=== PATIENT | male | born 1975 | race Caucasian/White ===

== ENCOUNTER 2016-09-05 08:02 | Emergency (ER) | payer OTHER ==
[2016-09-05 08:24] VITALS: BP 133/95; PULSE 73; RESP 18; TEMP 98.6; O2SAT 97
[2016-09-05] MEDS ORDERED: IBUPROFEN 600 MG TAB PO ONE ×2 (08:33→08:35)
--- NOTE | 2016-09-05 08:42 | UCPHY ---
H & P Time Seen by Provider: 09/05/16 08:30 Patient Type: New HPI/ROS: This patient presents with a chief complaint of a finger laceration which occurred shortly before arrival when he cut it on a knife. Tetanus immunizations are current. He was concerned because he could not control the bleeding. He has no motor or sensory dysfunction. Smoking Status: Former smoker Physical Exam: This is a well-developed well-nourished male who is in no acute distress. He is alert lucid and appropriate. Speech and gait are normal. Examination of the finger reveals a superficial small flap laceration to the ulnar side of the distal phalanx of the 4th digit. Pressure has controlled the bleeding. Constitutional: Initial Vital Signs Temperature (C) 37 C 09/05/16 08:21 Heart Rate 73 09/05/16 08:21 Respiratory Rate 18 09/05/16 08:21 Blood Pressure 133/95 H 09/05/16 08:21 O2 Sat (%) 97 09/05/16 08:21 Allergies/Adverse Reactions: No Known Allergies Allergy (Verified 09/05/16 08:20) Home Medications: Medication Instructions Recorded NO HOME MEDICATIONS 08/05/11 Medical Decision Making ED Course/Re-evaluation: The wound was cleansed and dressed. Differential Diagnosis: This laceration is quite minor and does not require sutures. - Data Points Medications Given: Discontinued Medications Ibuprofen (Motrin) 600 mg PO EDNOW ONE Stop: 09/05/16 08:36 Last Admin: 09/05/16 08:37 Dose: 600 mg Departure - Departure Disposition: Home, Routine, Self-Care Clinical Impression: Finger laceration Qualifiers: Encounter type: initial encounter Qualifier Code: (S61.219A) Laceration without foreign body of unspecified finger without damage to nail, initial encounter Condition: Good Instructions: Laceration (ED), Laceration Without Closure (ED) Additional Instructions: Changes are dressing in 2 or 3 days unless you get the current 1 wet in which case you should change it right away. Return immediately for any suggestion of infection. If you notice spreading redness, swelling, increasing pain and tenderness or polina pus you should return immediately since these findings frequently indicate infection. It usually takes 3 days from the time of injury for an infection to begin. Adult Pain & Fever Control: We recommend Acetaminophen (Tylenol) and Ibuprofen (Motrin, Advil) for pain and fever control. When fever is high or pain severe, both drugs can be used at the same time, but at different intervals. Please note the time differences. Your dose is: Acetaminophen [650]mg every 4 to 6 hours ibuprofen [600]mg every [6] hours with food OR naproxen Sodium (Aleve) [440]mg every 12 hours. Note: do not take Acetaminophen with Hydrocodone (Vicodin, Lortab) or Oxycodone (Percocet). These medications also contain Acetaminophen. No more than 3000 mg of Acetaminophen should be taken in 24 hours (for an adult) . The maximal dose of ibuprofen that it is safe in a 24-hour period is 2400 mg. You may take 400 mg every 4 hours, 600 mg every 6 hours or 800 mg every 8 hours safely. Referrals: JORGE HOLLOWAY [Primary Care Provider] - As per Instructions - PQRS PQRS Measurement: Not applicable
== END 2016-09-05 08:57 | disposition home or self-care (01) ==
LOC: CED 08:02
DX: S61.215A Laceration without foreign body of left ring finger without damage to nail, initial encounter (principal); W26.0XXA Contact with knife, initial encounter
CPT/HCPCS: 99202-PO; G0463-PO

== ENCOUNTER 2016-09-24 18:11 | Emergency (ER) | payer OTHER ==
--- NOTE | 2016-09-24 18:24 | UCPHY ---
H & P Patient Type: Established HPI/ROS: HPI CHIEF COMPLAINT: Left flank pain I think I have a kidney stone HISTORY OF PRESENT ILLNESS: This patient very pleasant a 41-year-old male, denies any significant medical history except for kidney stones, presents to urgent care with left flank pain. Patient tells me that developed left flank pain all the sudden 2 days ago. He has had left flank pain ongoing since and some sharp stabbing radiation pain into his left groin region. Denies testicular pain. States he had dark urine yesterday but no blood visible. Denies burning when he urinates. Denies fever, denies nausea vomiting. Past Medical History: Kidney stones Past Surgical History: lithotripsy Social History: denies use of drugs, endorses tobacco, denies alcohol Family History: Noncontributory ROS REVIEW OF SYSTEMS: A comprehensive 10 point review of systems is otherwise negative aside from elements mentioned in the history of present illness. Exam Constitutional triage nursing summary reviewed, vital signs reviewed, awake/ alert. Eyes normal conjunctivae and sclera, EOMI, PERRLA. HENT normal inspection, atraumatic, moist mucus membranes, no epistaxis, neck supple/ no meningismus, no raccoon eyes. Respiratory clear to auscultation bilaterally, normal breath sounds, no respiratory distress, no wheezing. Cardiovascular rate normal, regular rhythm, no murmur, no edema, distal pulses normal. Gastrointestinal no left lower quadrant abdominal pain soft, non-tender, no rebound, no guarding, normal bowel sounds, no distension, no pulsatile mass. Genitourinary mild tenderness palpation left CVA, otherwise unremarkable Musculoskeletal no midline vertebral tenderness, full range of motion, no calf swelling, no tenderness of extremities, no meningismus, good pulses, neurovascularly intact. Skin pink, warm, & dry, no rash, skin atraumatic. Neurologic awake, alert and oriented x 3, AAOx3, moves all 4 extremities equally, motor intact, sensory intact, CN II-XII intact, normal cerebellar, normal vision, normal speech. Psychiatric normal mood/affect. Heme/Lymph/Immune no lymphadenopathy. Differential diagnosis includes but is not limited to and in no particular order : Kidney stone, Bowel obstruction, appendicitis, gallbladder disease, diverticulitis, colitis, enteritis, perforated viscus, gastritis, GERD, esophagitis, urinary tract infection, pyelonephritis, Medical Decision Making: This patient had an IV established received IV fluid bolus, once we get his creatinine back receive 30 mg IV Toradol for pain control. He will have a CT scan abdomen pelvis without IV contrast for flank pain kidney stone evaluation. Re-evaluation: CT scan of the abdomen pelvis without IV contrast. The results of the study are very small 2 mm stone in the penile urethra otherwise unremarkable no hydronephrosis, no pyelonephritis. The study was read by Dr. Hardy. I viewed the images myself on the PACS system. 1945: This patient is resting comfortably no ongoing flank pain is not have any vomiting. His urinalysis been reviewed shows no blood. CT results show possible 2 mm ureteral stone. Will most likely pass next 12 hours. I will send him home with Devi and [place] for pain control. He understands to follow up with Urology. Source: Patient - Family History Significant Family History: No pertinent family hx - Social History Smoking Status: Former smoker Constitutional: Initial Vital Signs Temperature (C) 37.0 C 09/24/16 18:20 Heart Rate 96 09/24/16 18:20 Respiratory Rate 18 09/24/16 18:20 Blood Pressure 138/83 H 09/24/16 18:20 O2 Sat (%) 96 09/24/16 18:20 O2 Delivery Mode Room Air Allergies/Adverse Reactions: No Known Allergies Allergy (Verified 09/24/16 18:27) Home Medications: Medication Instructions Recorded NO HOME MEDICATIONS 08/05/11 Hydrocodone/APAP 5/325 [[place] 1 - 2 tab PO Q4H PRN #10 tab 09/24/16 5/325] Ondansetron HCl [Zofran] 4 mg PO Q4-6PRN PRN #10 tablet 09/24/16 Medical Decision Making - Data Points Laboratory Results: Laboratory Results 09/24/16 18:53 09/24/16 18:53 09/24/16 09/24/16 18:53 18:15 WBC 10.83 H 10^3/uL (3.80-9.50) RBC 4.72 10^6/uL (4.40-6.38) Hgb 14.2 g/dL (13.7-17.5) Hct 42.0 % (40.0-51.0) MCV 89.0 fL (81.5-99.8) MCH 30.1 pg (27.9-34.1) MCHC 33.8 g/dL (32.4-36.7) RDW 12.9 % (11.5-15.2) Plt Count 241 10^3/uL (150-400) MPV 9.7 fL (8.7-11.7) Neut % (Auto) 58.8 % (39.3-74.2) Lymph % (Auto) 28.9 % (15.0-45.0) [place] % (Auto) 11.4 % (4.5-13.0) Eos % (Auto) 0.0 L % (0.6-7.6) Baso % (Auto) 0.5 % (0.3-1.7) Nucleat RBC Rel Count 0.0 % (0.0-0.2) Absolute Neuts (auto) 6.38 10^3/uL (1.70-6.50) Absolute Lymphs (auto) 3.13 H 10^3/uL (1.00-3.00) Absolute Monos (auto) 1.23 H 10^3/uL (0.30-0.80) Absolute Eos (auto) 0.00 L 10^3/uL (0.03-0.40) Absolute Basos (auto) 0.05 10^3/uL (0.02-0.10) Absolute Nucleated RBC 0.00 10^3/uL (0-0.01) Immature Gran % 0.4 % (0.0-1.1) Immature Gran # 0.04 10^3/uL (0.00-0.10) Sodium 141 mEq/L (134-144) Potassium 4.5 mEq/L (3.5-5.2) Chloride 104 mEq/L (97-110) Carbon Dioxide 22 mEq/l (22-31) Anion Gap 15 mEq/L (8-16) BUN 21 mg/dL (7-23) Creatinine 0.9 mg/dL (0.7-1.3) Estimated GFR > 60 Glucose 92 mg/dL (70-100) Calcium 9.4 mg/dL (8.5-10.4) Total Bilirubin 0.4 mg/dL (0.1-1.4) Conjugated Bilirubin 0.3 mg/dL (0.0-0.5) Unconjugated Bilirubin 0.1 mg/dL (0.0-1.1) AST 23 IU/L (17-59) ALT 24 IU/L (21-72) Alkaline Phosphatase 73 IU/L (38-126) Total Protein 6.9 g/dL (6.3-8.2) Albumin 3.9 g/dL (3.5-5.0) Lipase 375.0 H IU/L (23-300) Urine Color YELLOW Urine Appearance CLEAR Urine pH 5.5 (5.0-7.5) Ur Specific [place] 1.025 (1.002-1.030) Urine Protein NEGATIVE (NEGATIVE) Urine Ketones NEGATIVE (NEGATIVE) Urine Blood NEGATIVE (NEGATIVE) Urine Nitrate NEGATIVE (NEGATIVE) Urine Bilirubin NEGATIVE (NEGATIVE) Urine Urobilinogen 0.2 EU (0.2-1.0) Ur Leukocyte Esterase NEGATIVE (NEGATIVE) Ur Culture Indicated? NOT INDICATED (NI) Urine Glucose NEGATIVE (NEGATIVE) Medications Given: Discontinued Medications Sodium Chloride (Ns) 1,000 mls @ 0 mls/hr IV ONCE ONE PRN Reason: Wide Open Stop: 09/24/16 18:28 Last Admin: 09/24/16 19:08 Dose: 1,000 mls Ketorolac Tromethamine (Toradol) 30 mg IVP EDNOW ONE Stop: 09/24/16 19:09 Last Admin: 09/24/16 19:10 Dose: 30 mg Ondansetron HCl (Zofran) 4 mg IVP EDNOW ONE Stop: 09/24/16 18:28 Last Admin: 09/24/16 19:08 Dose: 4 mg Departure - Departure Disposition: Home, Routine, Self-Care Clinical Impression: Kidney stone Condition: Good Instructions: Kidney Stones (ED), Flank Pain (ED), Renal Colic (ED) Additional Instructions: 1.Drink lots of fluids 2. You will most likely passed a very small stone next 12 hours. Referrals: JORGE HOLLOWAY [Primary Care Provider] - As per Instructions Will Henderson MD [Medical Doctor] - As per Instructions Prescriptions: Hydrocodone/APAP 5/325 [[place] 5/325] 1 - 2 tab PO Q4H PRN #10 tab PRN Reason: Pain, Moderate Ondansetron HCl [Zofran] 4 mg PO Q4-6PRN PRN #10 tablet PRN Reason: Nausea/Vomiting, Use 1st - PQRS PQRS Measurement: n/a
[2016-09-24 18:26] LABS: COLOR YELLOW; LEUKOCYTE ESTERASE,URINE NEGATIVE (NEGATIVE); NITRITE,URINE NEGATIVE (NEGATIVE); PH,URINE 5.5 (5.0-7.5)
[2016-09-24] MEDS ORDERED: ONDANSETRON 4 MG/2 ML VIAL IVP ONE (18:27)
[2016-09-24] MEDS ORDERED: NS 1,000 ML IV ONE (18:27)
[2016-09-24 18:57] VITALS: BP 138/83; PULSE 96; RESP 18; TEMP 98.6; O2SAT 96
[2016-09-24] MEDS ORDERED: KETOROLAC 30 MG/1 ML SDV ONE (19:03)
[2016-09-24 19:06] LABS: % IMMATURE GRANULYOCYTES 0.4 % (0.0-1.1); ABSOLUTE IMMATURE GRANULOCYTES 0.04 10^3/uL (0.00-0.10); ADD DIFF? NO; ADD MORPH? NO; ADD SCAN? NO; ATYPICAL LYMPHOCYTE FLAG 20 (0-99); FRAGMENT RBC FLAG 0 (0-99); HEMOGLOBIN 14.2 g/dL (13.7-17.5); LEFT SHIFT FLG 0 (0-99); LIPEMIA HEMOLYSIS FLAG 90 (0-99); MEAN CELL HEMOGLOBIN 30.1 pg (27.9-34.1); MEAN CELL HEMOGLOBIN CONCENTR. 33.8 g/dL (32.4-36.7); MEAN PLATELET VOLUME 9.7 fL (8.7-11.7); PLATELET CLUMPS FLAG 0 (0-99); PLATELET COUNT 241 10^3/uL (150-400); RED BLOOD CELL COUNT 4.72 10^6/uL (4.40-6.38); RED CELL DISTRIBUTION WIDTH 12.9 % (11.5-15.2)
[2016-09-24] MEDS ORDERED: KETOROLAC 30 MG/1 ML SDV IVP ONE (19:08)
--- NOTE | 2016-09-24 19:20 | CT ---
CT Scan of the Urinary Tract (Abdomen and Pelvis Without Contrast) at 1838 hours Clinical Indications: Left flank pain. History of stones. Comparisons: None. Technique: Multidetector helical CT imaging was performed from the kidneys to the urinary bladder wi thout contrast. Dose reduction techniques were utilized. Findings: Abdomen: The lung bases are clear. No evidence for pleural effusion. No focal liver lesions identifi ed. Gallbladder is unremarkable. Pancreas is normal in size and appearance. There is small renal calc chris in both kidneys in the region of the pyramid/calyx measuring 1 to 2 mm. No evidence for hydroneph rosis in either kidney or perinephric stranding. No evidence of dilatation of either ureter. Pelvis: No evidence for ureteral calculus. A couple of phleboliths are visualized. Benign prostate c alcifications are seen. Possible tiny 2 mm calcification is seen in the region of the proximal urethr a. No evidence for bladder calculi. No significant free fluid in the pelvis. Appendix is normal in si ze and appearance. No evidence for diverticulitis. Mild chronic anterior wedge compression deformitie s are seen of T10 and T11 vertebral bodies. There is mild disk height narrowing at L5-S1. Impression: 1. Nonobstructive bilateral nephrolithiasis. No evidence of ureteral calculus. Possible tiny calculus in the urethra. 2. Nonspecific probable benign prostate calcifications. 3. Mild chronic anterior wedge compression deformities of T10 and T11 vertebral bodies. Mild degenera tive disk disease in the lumbar spine. Results called and discussed with Jeremiah Herbert MD on 09/24/2016 at 1859 hours. Attention: This CT examination is specifically designed to evaluate patients who are clinically susp ected of having acute obstructive uropathy. This examination does not use radiographic contrast, and as such, provides only a limited evaluation of the abdomen, pelvis and retroperitoneum. If there i s further clinical suspicion for pathological conditions other than obstructive uropathy, a complete CT evaluation of the abdomen and pelvis utilizing intravenous, oral, and rectal contrast should be co nsidered.
[2016-09-24 19:22] LABS: ALANINE AMINOTRANSFERASE 24 IU/L (21-72); ALBUMIN 3.9 g/dL (3.5-5.0); ALKALINE PHOSPHATASE 73 IU/L (38-126); ANION GAP 15 mEq/L (8-16); ASPARTATE AMINOTRANSFERASE 23 IU/L (17-59); BILIRUBIN,TOTAL 0.4 mg/dL (0.1-1.4); BILIRUBIN-CONJUGATED 0.3 mg/dL (0.0-0.5); BILIRUBIN-UNCONJUGATED 0.1 mg/dL (0.0-1.1); CALCIUM 9.4 mg/dL (8.5-10.4); CARBON DIOXIDE 22 mEq/l (22-31); CHLORIDE 104 mEq/L (97-110); CREATININE 0.9 mg/dL (0.7-1.3); GLOMERULAR FILTRATION RATE > 60; GLUCOSE 92 mg/dL (70-100); POTASSIUM 4.5 mEq/L (3.5-5.2); SODIUM 141 mEq/L (134-144); TOTAL PROTEIN 6.9 g/dL (6.3-8.2)
== END 2016-09-24 19:59 | disposition home or self-care (01) ==
LOC: CED 18:11
DX: N20.0 Calculus of kidney (principal); N42.9 Disorder of prostate, unspecified; Z87.442 Personal history of urinary calculi; Z87.891 Personal history of nicotine dependence
CPT/HCPCS: 74176-PO; 80048-PO; 80076-PO; 81003-PO; 83690-PO; 85025-PO; 96361-PO; 96374-PO; 96375-PO; G0463-PO; J1885; J2405

== ENCOUNTER 2017-05-28 10:06 | Emergency (ER) | payer BC, OTHER ==
[2017-05-28 10:12] VITALS: TEMP 99.1
--- NOTE | 2017-05-28 10:38 | EDPHY ---
H & P Time Seen by Provider: 05/28/17 10:14 HPI/ROS: CHIEF COMPLAINT: History of bipolar, not sleeping HISTORY OF PRESENT ILLNESS: 41-year-old male presents to the emergency department by private vehicle feeling depressed. He has a history of bipolar. He was on lithium 20 years ago and he did not like this medication. He states that he is involved with a "lawsuit with [facility] ". He recently moved back to [place] for a job. He states that he smokes marijuana and does drink alcohol. Denies any other substance abuse. Denies suicidal or homicidal ideation. He states that he has not slept in several weeks. He states he is not functioning well. His chronic headaches. No visual changes. No nausea or vomiting. No fevers or chills. No chest pain or difficulty breathing. REVIEW OF SYSTEMS: Constitutional: No fever, no chills. Eyes: No double or blurry vision. ENT: No sore throat. Respiratory: No cough, no shortness of breath. Cardiac: No chest pain. Gastrointestinal: No abdominal pain, vomiting or diarrhea. Genitourinary: No dysuria. Musculoskeletal: No neck or back pain. Skin: No rashes. Neurological: Headache. Past Medical/Surgical History: Bipolar unmedicated for 20 years was on lithium. Social History: Smoking Status: Current some day smoker Physical Exam: General Appearance: Alert, no distress. Tearful. Eyes: Pupils equal and round. Extraocular motions are all intact. ENT: Mouth: Mucous membranes moist. Respiratory: No wheezing, rhonchi, or rales, lungs are clear to auscultation. Cardiovascular: Regular rate and rhythm. Gastrointestinal: Abdomen is soft and nontender, no masses, no rebound or guarding, bowel sounds normal. Neurological: Alert and oriented x 3, cranial nerves II through XII grossly intact Skin: Warm and dry, no rashes. Musculoskeletal: Nontender to palpate along the cervical, thoracic or lumbar spine. Neck is supple. Extremities: Full range of motion and no peripheral edema. Psychiatric: Patient is oriented X 3, there is no agitation. Constitutional: Initial Vital Signs Temperature (C) 37.3 C 05/28/17 10:10 Heart Rate 117 H 05/28/17 10:10 Respiratory Rate 18 05/28/17 10:10 Blood Pressure 144/94 H 05/28/17 10:10 O2 Sat (%) 95 10/14/17 10:10 O2 Delivery Mode Room Air Allergies/Adverse Reactions: No Known Allergies Allergy (Verified 09/24/16 18:27) Home Medications: Medication Instructions Recorded LORazepam [Ativan] 1 mg PO Q6-8PRN PRN #10 tab 05/28/17 Percocet 5/325 (*) 05/28/17 Xanax 05/28/17 Medical Decision Making ED Course/Re-evaluation: 41-year-old male presents with history of bipolar. He was placed on a detainer. He has been medically cleared. He was evaluated by mental health and will be discharged home with his . He has outpatient follow-up scheduled. He was given prescription for Ativan for his anxiety. The patient is not suicidal or homicidal. He is comfortable being discharged home. Differential Diagnosis: Depression including functional and major depression, situational depression, medication side effect, drugs and alcohol abuse. - Data Points Laboratory Results: Laboratory Results 05/28/17 10:45 05/28/17 10:55 05/28/17 05/28/17 05/28/17 10:55 10:45 10:40 WBC 9.22 10^3/uL 10^3/uL (3.80-9.50) RBC 4.60 10^6/uL 10^6/uL (4.40-6.38) Hgb 14.2 g/dL g/dL (13.7-17.5) Hct 40.6 % % (40.0-51.0) MCV 88.3 fL fL (81.5-99.8) MCH 30.9 pg pg (27.9-34.1) MCHC 35.0 g/dL g/dL (32.4-36.7) RDW 12.8 % % (11.5-15.2) Plt Count 242 10^3/uL 10^3/uL (150-400) MPV 9.4 fL fL (8.7-11.7) Neut % (Auto) 61.0 % % (39.3-74.2) Lymph % (Auto) 29.6 % % (15.0-45.0) [place] % (Auto) 8.7 % % (4.5-13.0) Eos % (Auto) 0.0 % L % (0.6-7.6) Baso % (Auto) 0.4 % % (0.3-1.7) Nucleat RBC Rel Count 0.0 % % (0.0-0.2) Absolute Neuts (auto) 5.62 10^3/uL 10^3/uL (1.70-6.50) Absolute Lymphs (auto) 2.73 10^3/uL 10^3/uL (1.00-3.00) Absolute Monos (auto) 0.80 10^3/uL 10^3/uL (0.30-0.80) Absolute Eos (auto) 0.00 10^3/uL L 10^3/uL (0.03-0.40) Absolute Basos (auto) 0.04 10^3/uL 10^3/uL (0.02-0.10) Absolute Nucleated RBC 0.00 10^3/uL 10^3/uL (0-0.01) Immature Gran % 0.3 % % (0.0-1.1) Immature Gran # 0.03 10^3/uL 10^3/uL (0.00-0.10) Sodium 139 mEq/L mEq/L (134-144) Potassium 4.2 mEq/L mEq/L (3.5-5.2) Chloride 105 mEq/L mEq/L (97-110) Carbon Dioxide 20 mEq/l L mEq/l (22-31) Anion Gap 14 mEq/L mEq/L (8-16) BUN 19 mg/dL mg/dL (7-23) Creatinine 1.0 mg/dL mg/dL (0.7-1.3) Estimated GFR > 60 Glucose 76 mg/dL mg/dL (70-100) Calcium 8.7 mg/dL mg/dL (8.5-10.4) TSH 0.389 uIU/mL L uIU/mL (0.465-4.680) Urine Opiates Screen NEGATIVE (NEGATIVE) Urine Barbiturates NEGATIVE (NEGATIVE) Ur Phencyclidine Scrn NEGATIVE (NEGATIVE) Ur Amphetamine Screen NEGATIVE (NEGATIVE) U Benzodiazepines Scrn NON-NEGATIVE H (NEGATIVE) Urine Cocaine Screen NEGATIVE (NEGATIVE) U Marijuana (THC) Screen NON-NEGATIVE H (NEGATIVE) Ethyl Alcohol 104 mg/dL H mg/dL (0-10) Medications Given: Discontinued Medications Acetaminophen (Tylenol) 1,000 mg PO EDNOW ONE Stop: 05/28/17 13:02 Last Admin: 05/28/17 13:04 Dose: 1,000 mg Lorazepam (Ativan) 1 mg PO EDNOW ONE Stop: 05/28/17 13:03 Last Admin: 05/28/17 13:04 Dose: 1 mg Nicotine Polacrilex (Nicorette) 2 mg B PRN PRN PRN Reason: Nicotine Withdrawal Stop: 11/24/17 11:34 Last Admin: 05/28/17 11:37 Dose: 2 mg Departure - Departure Disposition: Home, Routine, Self-Care Clinical Impression: Bipolar 1 disorder Condition: Good Instructions: Bipolar Disorder (ED) Additional Instructions: Follow-up per Mental Health's instructions. Ativan as needed for symptoms of anxiety. Return to the emergency department if you feel suicidal homicidal or if you have any other concerns. Referrals: JORGE HOLLOWAY [Primary Care Provider] - As per Instructions [facility] [Outside] - As per Instructions Prescriptions: LORazepam [Ativan] 1 mg PO Q6-8PRN PRN #10 tab PRN Reason: Anxiety
[2017-05-28 11:02] LABS: % IMMATURE GRANULYOCYTES 0.3 % (0.0-1.1); ABSOLUTE IMMATURE GRANULOCYTES 0.03 10^3/uL (0.00-0.10); ADD DIFF? NO; ADD MORPH? NO; ADD SCAN? NO; ATYPICAL LYMPHOCYTE FLAG 10 (0-99); FRAGMENT RBC FLAG 0 (0-99); HEMATOCRIT 40.6 % (40.0-51.0); HEMOGLOBIN 14.2 g/dL (13.7-17.5); LEFT SHIFT FLG 0 (0-99); LIPEMIA HEMOLYSIS FLAG 90 (0-99); MEAN CELL HEMOGLOBIN 30.9 pg (27.9-34.1); MEAN CELL VOLUME 88.3 fL (81.5-99.8); MEAN PLATELET VOLUME 9.4 fL (8.7-11.7); PLATELET CLUMPS FLAG 10 (0-99); PLATELET COUNT 242 10^3/uL (150-400); RED CELL DISTRIBUTION WIDTH 12.8 % (11.5-15.2)
[2017-05-28 11:21] LABS: ANION GAP 14 mEq/L (8-16); CALCIUM 8.7 mg/dL (8.5-10.4); CARBON DIOXIDE 20 mEq/l (22-31); CHLORIDE 105 mEq/L (97-110); ETHANOL SERUM 104 mg/dL (0-10); GLOMERULAR FILTRATION RATE > 60; GLUCOSE 76 mg/dL (70-100); POTASSIUM 4.2 mEq/L (3.5-5.2); SODIUM 139 mEq/L (134-144)
[2017-05-28] MEDS ORDERED: NICOTINE POLACRILEX 2 MG GUM B PRN (11:35)
[2017-05-28] MEDS ORDERED: ACETAMINOPHEN 500 MG TAB PO ONE (13:01)
[2017-05-28] MEDS ORDERED: LORazepam 1 MG TAB PO ONE (13:02)
[2017-05-28 14:55] VITALS: BP 138/70; PULSE 84; RESP 14; O2SAT 97
== END 2017-05-28 14:55 | disposition home or self-care (01) ==
DX: F31.9 Bipolar disorder, unspecified (principal); F17.200 Nicotine dependence, unspecified, uncomplicated
CPT/HCPCS: 80305; G0480

== ENCOUNTER 2017-06-15 20:37 | Emergency (ER) | payer SELFPAY ==
--- NOTE | 2017-06-15 20:31 | EDPHY ---
H & P Constitutional: Initial Vital Signs Temperature (C) 36.4 C 06/15/17 20:40 Heart Rate 83 06/15/17 20:40 Respiratory Rate 18 06/15/17 20:40 Blood Pressure 145/87 H 06/15/17 20:40 O2 Sat (%) 96 06/15/17 20:40 O2 Delivery Mode Room Air Allergies/Adverse Reactions: risperidone [From Risperdal] Allergy (Verified 06/15/17 21:23) Home Medications: Medication Instructions Recorded Percocet 5/325 (*) 05/28/17 Xanax 05/28/17 Depakote 06/15/17 Zyprexa 06/15/17 Medical Decision Making ED Course/Re-evaluation: CHIEF COMPLAINT: Psychiatric evaluation HISTORY OF PRESENT ILLNESS: The patient is a 41 y/o male with a history of bipolar disorder arriving voluntarily via EMS requesting a psychiatric evaluation. He tells me, "I feel like I'm capable of things other people aren't capable of. I feel like I can read a bunch of peoples' minds in the room." Per EMS, his is concerned he is having increasing frequency of his manic episodes. Tonight he apparently began cooking and then fell asleep leaving food on the stove to burn. The patient denies any suicidal ideation, homicidal ideation, or concerning ingestions. He is not taking any mediations for his mental health conditions. His mental health VIDEO PRODUCTION ASSISTANT called the ED and believes the patient requires inpatient psychiatric admission at this point. REVIEW OF SYSTEMS: A 10 point review of systems was performed and is negative with the exception of the elements mentioned in the history of present illness. PHYSICAL EXAM: General Appearance: Alert, well hydrated, appropriate, and non-toxic appearing. Head: Atraumatic without scalp tenderness or obvious injury Eyes: Pupils equal, round, reactive to light and accommodation, EOMI, no trauma , no injection. Nose: Atraumatic, no rhinorrhea, clear. Throat: Mucus membranes moist. Neck: Supple, nontender, no lymphadenopathy. Respiratory: No retractions, no distress, no wheezes, and no accessory muscle use. Lungs are clear to auscultation bilaterally. Cardiovascular: Regular rate and rhythm, no murmurs, rubs, or gallops. Good capillary refill all extremities. Gastrointestinal: Abdomen is soft, nontender, non-distended, no masses, no rebound, no guarding, no peritoneal signs. Musculoskeletal: Normal active ROM of all extremities, atraumatic. Neurological: Alert, appropriate, and interactive. The patient has non-focal cranial nerves, motor, sensory, and cerebellar exam. Skin: No rashes, good turgor, no nodules on palpation. Psychiatric: Tangential speech, calm Past medical history: Bipolar disorder Past surgical history: noncontributory Family history: noncontributory Social history: Heavy cigarette smoker. [facility] Prior medical records reviewed including ED visit 05/28/17 for similar symptoms. DIFFERENTIAL DIAGNOSIS: The differential diagnosis for the patient's depression included but was not limited to functional and major depression, situational depression, medication side effect, drugs, and alcohol abuse. MEDICAL DECISION MAKING: Patient is in no acute distress and is hemodynamically stable. We are awaiting psychiatric team's evaluation. Patient has known history of psychiatric disorders and is here for evaluation. (Brock Philippe) 0554: No acute events overnight. Has had mental health evaluation pending inpatient psychiatric hospitalization for terry. Possibly 3 [place] hospitalization today. If bed available. Patient signed over to Dr. Valdes at 7:00 a.m. shift change. (Jeremiah Herbert) 7:00 a.m.-I assumed care of this patient at shift change. 8:30 a.m.-this patient has been accepted to [facility] by Dr. Hardin. (Stephanie Valdes) - Data Points Laboratory Results: Laboratory Results 06/15/17 20:50 06/15/17 20:50 06/15/17 06/15/17 06/15/17 20:50 20:50 20:50 WBC 10.97 10^3/uL H 10^3/uL (3.80-9.50) RBC 4.76 10^6/uL 10^6/uL (4.40-6.38) Hgb 14.5 g/dL g/dL (13.7-17.5) Hct 43.7 % % (40.0-51.0) MCV 91.8 fL fL (81.5-99.8) MCH 30.5 pg pg (27.9-34.1) MCHC 33.2 g/dL g/dL (32.4-36.7) RDW 12.9 % % (11.5-15.2) Plt Count 259 10^3/uL 10^3/uL (150-400) MPV 10.1 fL fL (8.7-11.7) Neut % (Auto) 58.4 % % (39.3-74.2) Lymph % (Auto) 32.9 % % (15.0-45.0) [place] % (Auto) 7.7 % % (4.5-13.0) Eos % (Auto) 0.0 % L % (0.6-7.6) Baso % (Auto) 0.5 % % (0.3-1.7) Nucleat RBC Rel Count 0.0 % % (0.0-0.2) Absolute Neuts (auto) 6.41 10^3/uL 10^3/uL (1.70-6.50) Absolute Lymphs (auto) 3.61 10^3/uL H 10^3/uL (1.00-3.00) Absolute Monos (auto) 0.84 10^3/uL H 10^3/uL (0.30-0.80) Absolute Eos (auto) 0.00 10^3/uL L 10^3/uL (0.03-0.40) Absolute Basos (auto) 0.06 10^3/uL 10^3/uL (0.02-0.10) Absolute Nucleated RBC 0.00 10^3/uL 10^3/uL (0-0.01) Immature Gran % 0.5 % % (0.0-1.1) Immature Gran # 0.05 10^3/uL 10^3/uL (0.00-0.10) Sodium 140 mEq/L mEq/L (134-144) Potassium 4.3 mEq/L mEq/L (3.5-5.2) Chloride 101 mEq/L mEq/L (97-110) Carbon Dioxide 26 mEq/l mEq/l (22-31) Anion Gap 13 mEq/L mEq/L (8-16) BUN 23 mg/dL mg/dL (7-23) Creatinine 1.1 mg/dL mg/dL (0.7-1.3) Estimated GFR > 60 Glucose 97 mg/dL mg/dL (70-100) Calcium 8.8 mg/dL mg/dL (8.5-10.4) Salicylates < 1.0 mg/dL L mg/dL (2.0-20.0) Urine Opiates Screen NEGATIVE (NEGATIVE) Acetaminophen < 10 mcg/mL L mcg/mL (10-30) Urine Barbiturates NEGATIVE (NEGATIVE) Ur Phencyclidine Scrn NEGATIVE (NEGATIVE) Ur Amphetamine Screen NEGATIVE (NEGATIVE) U Benzodiazepines Scrn NON-NEGATIVE H (NEGATIVE) Urine Cocaine Screen NEGATIVE (NEGATIVE) U Marijuana (THC) Screen NON-NEGATIVE H (NEGATIVE) Ethyl Alcohol < 10 mg/dL mg/dL (0-10) Medications Given: Nicotine Polacrilex (Nicorette) 2 mg B PRN PRN PRN Reason: Nicotine Withdrawal Stop: 12/12/17 23:23 Last Admin: 06/16/17 07:39 Dose: 2 mg Discontinued Medications Lorazepam (Ativan) 1 mg PO EDNOW ONE Stop: 06/16/17 02:43 Last Admin: 06/16/17 02:43 Dose: 1 mg Nicotine (Nicoderm Cq) 21 mg TD EDNOW ONE Stop: 06/15/17 22:18 Last Admin: 06/15/17 22:20 Dose: 21 mg Departure - Departure Disposition: [facility] IP Clinical Impression: Terry Condition: Good Referrals: Patient,NotPresent [Unknown] - As per Instructions Report Scribed for: Brock Philippe Report Scribed by: Natacha Nicholson Date of Report: 06/15/17 Time of Report: 20:46
[2017-06-15 21:26] LABS: PLATELET COUNT 259 10^3/uL (150-400)
[2017-06-15] MEDS ORDERED: NICOTINE 21 MG/24 HR PATCH TD ONE (22:17)
[2017-06-15] MEDS: NICOTINE POLACRILEX 2 MG GUM B PRN (23:29)
[2017-06-16] MEDS ORDERED: LORazepam 1 MG TAB ONE (02:40)
[2017-06-16] MEDS ORDERED: LORazepam 1 MG TAB PO ONE (02:42)
[2017-06-16 05:08] VITALS: O2SAT 95
[2017-06-16] MEDS: NICOTINE POLACRILEX 2 MG GUM B PRN (07:39)
[2017-06-16 08:07] VITALS: BP 155/99; PULSE 82; RESP 16; TEMP 97.3
[2017-06-16] MEDS ORDERED: ALPRAZolam 0.25 MG TAB PO ONE (09:09)
== END 2017-06-16 10:23 ==
LOC: EDUNIT#
DX: F30.9 Manic episode, unspecified (principal)
CPT/HCPCS: 80305; G0480

== ENCOUNTER 2017-06-28 21:23 | Emergency (ER) | payer SELFPAY ==
[2017-06-28 22:10] LABS: % IMMATURE GRANULYOCYTES 0.3 % (0.0-1.1); ABSOLUTE IMMATURE GRANULOCYTES 0.03 10^3/uL (0.00-0.10); ADD DIFF? NO; ADD MORPH? NO; ADD SCAN? NO; ATYPICAL LYMPHOCYTE FLAG 10 (0-99); FRAGMENT RBC FLAG 0 (0-99); HEMATOCRIT 40.6 % (40.0-51.0); HEMOGLOBIN 14.2 g/dL (13.7-17.5); LEFT SHIFT FLG 0 (0-99); LIPEMIA HEMOLYSIS FLAG 90 (0-99); MEAN CELL HEMOGLOBIN 31.1 pg (27.9-34.1); MEAN CELL VOLUME 88.8 fL (81.5-99.8); PLATELET CLUMPS FLAG 0 (0-99); PLATELET COUNT 245 10^3/uL (150-400); RED BLOOD CELL COUNT 4.57 10^6/uL (4.40-6.38); RED CELL DISTRIBUTION WIDTH 12.9 % (11.5-15.2)
[2017-06-28] MEDS ORDERED: LORazepam 1 MG TAB PO ONE (22:16)
--- NOTE | 2017-06-28 22:18 | EDPHY ---
H & P Stated Complaint: DETAINER Source: Patient Exam Limitations: No limitations - Personal History Current Tetanus/Diphtheria Vaccine: Unsure Current Tetanus Diphtheria and Acellular Pertussis (TDAP): Unsure - Medical/Surgical History Hx Asthma: No Hx Chronic Respiratory Disease: No Hx Diabetes: No Hx Cardiac Disease: No Hx Renal Disease: No Hx Cirrhosis: No Hx Alcoholism: No Hx HIV/AIDS: No Hx Splenectomy or Spleen Trauma: No Other PMH: KIDNEY STONES, LITHOTRIPSY. cervical fxz - Social History Smoking Status: Current some day smoker Time Seen by Provider: 06/28/17 22:01 HPI/ROS: HPI The patient presents brought in on court ordered mental health hold initiated by his mother. The patient has a history of bipolar disorder on multiple medications, though not fully compliant, he was admitted most recently on June 15 [facility] for about 5 days. He has improved, however then feels that he has declined since his admission. He says he is running away from his family because they want to lock him up. He says his wants to divorce him. He says he is suffering from insomnia, eating too much. He apparently recently quit his job in [employer] [place] to [place] to be closer to family, however he mentally declined there, becoming more aggressive in paranoid. He has history of extremity and shopping surgeries. He seems to have a history of pressured speech, moving to stay at different hotels frequently. His mother has moved to the area to help with his care. He has been increasing we paranoid. Thinking that cm watching in following him.. REVIEW OF SYSTEMS Constitutional: No fever, no chills. Eyes: No discharge. ENT: No sore throat. Cardiovascular: No chest pain, no palpitations. Respiratory: No cough, no shortness of breath. Gastrointestinal: No abdominal pain, no vomiting. Genitourinary: No hematuria. Musculoskeletal: No back pain. Skin: No rashes. Neurological: No headache. 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 PHYSICAL General Appearance: Alert, no distress Eyes: Pupils equal and round no pallor or injection ENT, Mouth: Mucous membranes moist Respiratory: There are no retractions, lungs are clear to auscultation Cardiovascular: Regular rate and rhythm Gastrointestinal: Abdomen is soft and non-tender, no masses, bowel sounds normal Neurological: A&O, moves all extremities Skin: Warm and dry, no rashes Musculoskeletal: Neck is supple non tender Extremities: symmetrical, full range of motion Psychiatric: Patient is oriented X 3, there is no agitation (Aleta Hernandez) Constitutional: Initial Vital Signs Temperature (C) 37 C 06/28/17 21:25 Heart Rate 75 06/28/17 21:25 Respiratory Rate 12 06/28/17 21:25 Blood Pressure 157/95 H 06/28/17 21:25 O2 Sat (%) 96 06/28/17 21:25 O2 Delivery Mode Room Air Allergies/Adverse Reactions: risperidone [From Risperdal] Allergy (Verified 06/15/17 21:23) Home Medications: Medication Instructions Recorded Percocet 5/325 (*) 05/28/17 Xanax 05/28/17 Depakote 06/15/17 Zyprexa 06/15/17 Medical Decision Making ED Course/Re-evaluation: 1819: This patient has been accepted at [facility] by Dr. Bentley. EMTALA filled out. Appropriate transfer will be set up. (Jeremiah Herbert) Differential Diagnosis: 41-year-old male with history of bipolar disorder on court-ordered mental health hold initiated by his mother for grave disability. The patient seems to have a decline in his bipolar disorder with increasing paranoia, lack of sleep, poor medication compliance and seems to be unable to care for himself. Differential diagnosis includes worsening bipolar disorder with psychosis, polysubstance abuse, acute stress response. In the emergency department, labs were checked and were relatively unremarkable. Patient was given a dose of Ativan per his request. He was evaluated by the mental health worker who recommends inpatient placement for grave disability related to his bipolar disorder. They will begin to look for placement. At 7:00 a.m., I anticipate the case will be signed out to the oncoming provider Dr. Philippe. (Aleta Hernandez) - Data Points Laboratory Results: Laboratory Results 06/28/17 21:54 06/28/17 21:54 Medications Given: Divalproex Sodium (Depakote) 250 mg PO EDNOW ONE Stop: 06/29/17 21:01 Last Admin: 11/15/17 17:22 Dose: 250 mg Discontinued Medications Alprazolam (Xanax) 0.5 mg PO EDNOW ONE Stop: 06/29/17 17:00 Last Admin: 06/29/17 17:06 Dose: 0.25 mg Ibuprofen (Motrin) 600 mg PO EDNOW ONE Stop: 06/29/17 15:06 Last Admin: 06/29/17 15:09 Dose: 600 mg Lorazepam (Ativan) 1 mg PO EDNOW ONE Stop: 06/28/17 22:17 Last Admin: 06/28/17 22:23 Dose: 1 mg Lorazepam (Ativan) 1 mg PO EDNOW ONE Stop: 06/29/17 15:06 Last Admin: 06/29/17 15:09 Dose: 1 mg Nicotine (Nicoderm Cq) 21 mg TD EDNOW ONE Stop: 06/29/17 05:28 Last Admin: 06/29/17 05:30 Dose: 21 mg Oxycodone/Acetaminophen (Percocet 5/325) 1 tab PO EDNOW ONE Stop: 06/29/17 17:00 Last Admin: 06/29/17 17:06 Dose: 1 tab Departure - Departure Disposition: Other Psych, Not [place] Clinical Impression: Bipolar 1 disorder Condition: Good Referrals: JORGE HOLLOWAY [Primary Care Provider] - As per Instructions
[2017-06-28 22:28] LABS: ALANINE AMINOTRANSFERASE 50 IU/L (21-72); ALBUMIN 4.4 g/dL (3.5-5.0); ALKALINE PHOSPHATASE 55 IU/L (38-126); ANION GAP 13 mEq/L (8-16); ASPARTATE AMINOTRANSFERASE 30 IU/L (17-59); BILIRUBIN,TOTAL 0.6 mg/dL (0.1-1.4); CALCIUM 9.3 mg/dL (8.5-10.4); CARBON DIOXIDE 22 mEq/l (22-31); CHLORIDE 106 mEq/L (97-110); ETHANOL SERUM < 10 mg/dL (0-10); GLOMERULAR FILTRATION RATE > 60; GLUCOSE 81 mg/dL (70-100); POTASSIUM 3.9 mEq/L (3.5-5.2); SODIUM 141 mEq/L (134-144); TOTAL PROTEIN 7.3 g/dL (6.3-8.2)
[2017-06-29] MEDS ORDERED: NICOTINE 21 MG/24 HR PATCH TD ONE ×2 (05:24→05:27)
[2017-06-29] MEDS ORDERED: LORazepam 1 MG TAB PO ONE (15:05)
[2017-06-29] MEDS ORDERED: IBUPROFEN 600 MG TAB PO ONE (15:05)
[2017-06-29] MEDS ORDERED: OXYCODONE/APAP 5/325 TAB PO ONE (16:59)
[2017-06-29] MEDS ORDERED: ALPRAZolam 0.25 MG TAB PO ONE (16:59)
[2017-06-29 17:18] VITALS: RESP 16; TEMP 98.2
[2017-06-29] MEDS ORDERED: DIVALPROEX NA 250 MG TAB PO ONE (21:00)
[2017-06-29 21:14] VITALS: BP 131/91; PULSE 78; O2SAT 96
== END 2017-06-29 21:14 ==
LOC: EEVIPCON 21:23
DX: F31.9 Bipolar disorder, unspecified (principal); F17.200 Nicotine dependence, unspecified, uncomplicated
CPT/HCPCS: 80305; G0480